=== PATIENT | male | born 1940 | race Caucasian/White ===

== ENCOUNTER 2020-02-16 10:05 | Emergency (ER) | payer OTHER ==
[~2020-02-16] VITALS: Ht 182.9 cm; Wt 72.7 kg
[2020-02-16 10:08] VITALS: Ht 182.9 cm; Wt 72.7 kg
[2020-02-16] MEDS ORDERED: GLIPIZIDE10 MG PO (10:11)
[2020-02-16] MEDS ORDERED: PROCARDIA XL60 MG PO (10:12)
[2020-02-16] MEDS ORDERED: LIPITOR40 MG PO (10:12)
[2020-02-16] MEDS ORDERED: ELIQUIS5 MG PO (10:12)
[2020-02-16] MEDS ORDERED: METOPROLOL TART50 MG PO (10:13)
[2020-02-16] MEDS ORDERED: GLUCOPHAGE1000 MG PO (10:13)
[2020-02-16 11:05] LABS: CALC OSMOLALITY 275 mosm/kg (275-300); CALCIUM 8.6 mg/dL (8.5-10.1); CARBON DIOXIDE 27.7 mmol/L (21.0-32.0); CHLORIDE - SERUM 100 mmol/L (98-107); CREATININE - SERUM 1.3 mg/dL (0.6-1.3); GLUCOSE 151 mg/dL (74-106); POTASSIUM - SERUM 3.4 mmol/L (3.5-5.1); SODIUM 135 mmol/L (136-145); UREA NITROGEN 22 mg/dL (7-18); eGFR NON AFRICAN AMERICAN 56 mL/min (90-120)
[2020-02-16 11:07] LABS: BASOPHILS 0.2 % (0-2); EOSINOPHILS 0.1 % (0-7); HEMATOCRIT 42.3 % (42.0-54.0); HEMOGLOBIN 14.2 g/dL (13.5-17.5); IMMATURE GRANULOCYTES 0.3 % (0-5); LYMPHOCYTES 7.3 % (15-50); MCH 31.3 pg (26.0-34.0); MCHC 33.6 g/dL (31.0-37.0); MCV 93.2 fL (80.0-100.0); NEUTROPHILS 85.1 % (40-80); PLATELET COUNT 357 10x3/uL (130-400); RBC 4.54 10x6/uL (4.20-6.10); RDW 12.5 % (11.5-14.5); WBC 15.4 10x3/uL (4.8-10.8)
[2020-02-16 11:14] LABS: ALBUMIN 2.7 g/dL (3.4-5.0); ALKALINE PHOSPHATASE 99 U/L (30-120); ALT (SGPT) 17 U/L (10-68); AMYLASE - SERUM 44 U/L (25-115); BILIRUBIN - TOTAL 0.82 mg/dL (0.2-1.3); LIPASE 125 U/L (73-393); PROTEIN - SERUM 6.6 g/dL (6.4-8.2)
[2020-02-16 11:17] LABS: TROPONIN-I < 0.017 ng/mL (0.000-0.060)
[2020-02-16 11:32] LABS: NITRITE NEGATIVE (NEGATIVE); SPECIFIC GRAVITY 1.015 (1.005-1.020)
[2020-02-16 11:33] LABS: BACTERIA MODERATE /hpf (NEGATIVE); BILIRUBIN NEGATIVE (NEGATIVE); GLUCOSE NEGATIVE (NEGATIVE); GRANULAR CAST RARE /lpf (NONE SEEN); HYALINE CAST OCC /lpf (NONE SEEN); KETONE SMALL mg/dL (NEGATIVE); UROBILINOGEN 8 mg/dL (NORMAL); WHITE CELLS - URINE >50 /hpf (NEGATIVE)
[2020-02-16 16:01] VITALS: BP 185/89
== END 2020-02-16 16:30 | disposition other institution (70) ==
LOC: D.ER 10:05
PROVIDERS: Emergency Medicine
DX: T83.61XA Infection and inflammatory reaction due to implanted penile prosthesis, initial encounter (principal); E86.0 Dehydration; E11.65 Type 2 diabetes mellitus with hyperglycemia; Z79.84 Long term (current) use of oral hypoglycemic drugs; E87.6 Hypokalemia; E87.1 Hypo-osmolality and hyponatremia; D72.829 Elevated white blood cell count, unspecified; N39.0 Urinary tract infection, site not specified; I10 Essential (primary) hypertension; Z72.0 Tobacco use